=== PATIENT | female | born 1945 | race Caucasian/White ===

== ENCOUNTER → 2023-11-17 10:10 | Outpatient (BNVA) | payer MEDICARE, BC, SELFPAY | PROVIDERS: PCP Family Medicine; Referring Provider Family Medicine; Visit Provider Specialist | DX: G43.009 Migraine without aura, not intractable, without status migrainosus (principal); M54.2 Cervicalgia; R20.2 Paresthesia of skin | CPT/HCPCS: 99204 ==

== ENCOUNTER 2023-12-23 10:02 | Outpatient (CLI) | payer MEDICARE, BC, SELFPAY ==
--- NOTE | 2023-12-23 11:00 | MR_ITS ---
WS: [id number] MRI BRAIN WITHOUT CONTRAST HISTORY: G43.009 - Migraine without aura, not intractable, without... COMPARISON: None available. TECHNIQUE: Diffusion imaging, multiplanar T1, T2 and FLAIR imaging obtained. Diffusion imaging is normal. No acute infarct. Mild volume loss and atrophy. Mild small vessel ischem ic changes. No prior large territory infarct. Moderate hippocampal atrophy. Ventricles and extra-axial spaces are normal. No inferior displacement of cerebellar tonsils. The sella turcica and pituitary gland are unremarkabl e. Dural venous sinuses and andreafski of [place] demonstrate no abnormality on this unenhanced studies. Paranasal sinuses: Small amount of mucoperiosteal thickening in the LEFT maxillary sinus. Mastoid air cells: Normal. Calvarium and scalp: Intact. MR/MR head wo con* [id number] IMPRESSION: 1. No acute infarct. No acute hemorrhage. 2. Mild atrophy and mild small vessel ischemic disease. No prior infarct. 3. Moderate bilateral hippocampal atrophy.
--- NOTE | 2023-12-23 11:45 | MR_ITS ---
WS: [id number] MRI CERVICAL SPINE NONCONTRAST HISTORY: G43.009 - Migraine without aura, not intractable, without... COMPARISON: None available. Technique: Multiplanar, multisequence noncontrast imaging of the cervical spine. Mild straightening of the normal cervical lordosis. 2 mm retrolisthesis of C3. C7 anterolisthesis by 2 mm. Disc spaces are moderately narrowed throughout the cervical spine. No cervical spine fracture. Small amount of marrow edema in the adjacent endplates of T1 and T2. Signal within the cervical cord is normal. Visualized posterior fossa is unremarkable. Craniocervical junction, C1 and C2 relationship, odontoid process and soft tissues are normal. C2-C3: Normal. C3-C4: Mild osteophytic ridging and disc bulging. Small bilateral foraminal osteophytes and foraminal narrowing, RIGHT greater than LEFT. C4-C5: Mild disc bulging. Mild LEFT foraminal narrowing due to disc osteophyte disease. C5-C6: Mild osteophytic ridging with facet disease. RIGHT foraminal disc osteophyte resulting in mode rate stenosis. No stenosis on the LEFT. C6-C7: Osteophytic ridging and annular disc bulging mild central stenosis. Mild RIGHT and moderate LE FT foraminal stenosis and facet arthritis. C7-T1: No stenosis. T1-2: Osteophytic ridging and disc bulging. Central protrusion. Mild central and bilateral foraminal stenosis. Paraspinal soft tissue are normal. MR/MR cervical spin wo con* [id number] IMPRESSION: 1. No acute cervical spine fracture. 2. Moderate degenerative disc disease and spondylosis throughout the cervical spine. 3. Multilevel areas of stenosis due to combination of disc, osteophyte and fac et arthropathy. 4. C5-6: Moderate RIGHT foraminal stenosis due to disc osteophyte disease. 5. C6-7: Moderate LEFT foraminal stenosis, mild RIGHT foraminal stenosis and m ild central stenosis due to disc osteophyte disease. 6. Bilateral foraminal osteophytes at C3-4 with mild stenosis. 7. T1-2: Small central disc protrusion with mild central and bilateral foramin al stenosis.
== END 2023-12-23 10:03 | disposition home or self-care (01) ==
LOC: RAD 10:03
PROVIDERS: PCP Family Medicine; Visit Provider Specialist
DX: G43.009 Migraine without aura, not intractable, without status migrainosus (principal); M50.30 Other cervical disc degeneration, unspecified cervical region; M47.812 Spondylosis without myelopathy or radiculopathy, cervical region; M25.78 Osteophyte, vertebrae; M99.61 Osseous and subluxation stenosis of intervertebral foramina of cervical region
CPT/HCPCS: 70551; 72141

== ENCOUNTER → 2024-01-07 13:16 | Outpatient (BNVA) | payer MEDICARE, BC, SELFPAY | PROVIDERS: PCP Family Medicine; Visit Provider Specialist | DX: M54.2 Cervicalgia (principal); M19.90 Unspecified osteoarthritis, unspecified site; Z09 Encounter for follow-up examination after completed treatment for conditions other than malignant neoplasm; G43.009 Migraine without aura, not intractable, without status migrainosus; R20.2 Paresthesia of skin | CPT/HCPCS: 99214; 99215 ==